=== PATIENT | female | born 1950 | race American Indian/Alaskan Native ===

== ENCOUNTER 2018-10-22 10:36 | Day surgery (SDC) | payer MEDICARE ==
[~2018-10-22 10:36] MED LIST: IOPIDINE ONE; MYDRIACYL ONE; NEOFRIN ONE
[2018-10-22] MEDS ORDERED: NEOFRIN OS ONE (11:19)
[2018-10-22] MEDS ORDERED: IOPIDINE OS ONE ×2 (11:19→12:20)
[2018-10-22] MEDS ORDERED: MYDRIACYL OS ONE (11:19)
[2018-10-22 11:32] VITALS: BP 149/70
== END 2018-10-22 12:22 | disposition home or self-care (01) ==
LOC: OR 10:36
PROVIDERS: ATTEND Specialist
DX: H26.492 Other secondary cataract, left eye (principal); I10 Essential (primary) hypertension; K21.9 Gastro-esophageal reflux disease without esophagitis; Z79.899 Other long term (current) drug therapy; Z88.2 Allergy status to sulfonamides; Z98.41 Cataract extraction status, right eye; Z98.42 Cataract extraction status, left eye; Z72.89 Other problems related to lifestyle; Z98.890 Other specified postprocedural states; Z88.8 Allergy status to other drugs, medicaments and biological substances